=== PATIENT | male | born 1995 | race Caucasian/White ===

== ENCOUNTER 2023-09-14 18:12 | Emergency (ER) | payer OTHER, SELFPAY ==
[2023-09-14 18:30] VITALS: BP 131/85; PULSE 61; RESP 16; TEMP 36.7; O2SAT 99; BMI 30.1
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
== END 2023-09-14 19:30 | disposition home or self-care (01) ==
LOC: ED 19:19
PROVIDERS: Emergency Provider Student in an Organized Health Care Education/Training Program
DX: Z48.02 Encounter for removal of sutures (principal)
CPT/HCPCS: 99281; 99282

== ENCOUNTER 2024-09-12 18:07 | Outpatient (CLI) | payer MEDICAID, SELFPAY ==
--- OUTSIDE RECORDS SUMMARY | 2024-09-12 18:09 | XMS_ITS | Clinical Summary ---
Author Organization [facility] Address [place], [place] [address] Care Team Providers Care Pedicurist Name Role Phone None Primary Care Provider Unavailabl e Allergies Active Allergy Reactions Criticality Noted Date Comments Amoxicillin Hives Medium 12/11/2020 Medications Medication Sig Dispensed Refills Start Date End Date Status topiramate (TOPAMAX) 25 mg tabletIndications:Epi sodic mood disorder (HC) Take 1 tablet by mouth once daily. 30 tablet 3 01/20/2021 Active Encounters Date Type Department Care Team Description 06/18/2024 2:30 PM CDT Office Visit [facility] [id number] [place] [phone] Debora Alvarez SUPPORT REPRESENTATIVE [facility] Visit 06/18/2024 Travel from Last 3 Months Social History Tobacco Use Types Packs/Day Years Used Date Smoking Tobacco: Never Smokeless Tobacco: Never Tobacco Cessation:Counseling Given: Yes Alcohol Use Standard Drinks/Week Comments Yes 0 (1 standard drink = 0.6 oz pur e alcohol) occ PHQ-2 Answer Date Recorded PHQ-2 TOTAL SCORE 3 11/26/2020 Social Connections Answer Date Recorded Frequency of Communication with Friends and Fami ly Not on file 11/28/2021 Financial Resource Strain Answer Date R ecorded Difficulty of Paying Living Expenses Not on file 11/28/2021 Difficulty of Paying Living Expenses Not on file 11/28/2021 Sex and Gender Information Value Date Recorded Sex Assigned at Not on file Gender Identity Not on file Sexual Orientation Not on file Obstetrics History Last Filed Vital Signs Vital Sign Reading Time Taken Comments Blood Pressure 108/74 06/17/2021 4:00 PM CDT Pulse 68 06/17/2021 4:00 PM CDT Temperature 36.7 ??C (98.1 ??F) 01/19/2021 2:00 PM CS T Respiratory Rate - - Oxygen Saturation 97% 06/17/2021 4:00 PM CDT Inhaled Oxygen Concentration - - Weight 88.3 kg (194 lb 9.6 oz) 06/17/2021 4:00 P M CDT Height 174.8 cm (5' 8.82) 06/17/2021 4:00 PM CD T Body Mass Index 28.89 06/17/2021 4:00 PM CDT Plan of Treatment Health Maintenance Due Date Last Done Comments Tdap 2007 HIV for age 15-65 2011 Hepatitis C screening for ag e 18-79 2014 Tetanus booster 2016 Depression screening for age 12+ 11/26/2021 11/26/2020 BMI (ht and wt on same day) for age 18+ 06/17/2022 06/17/2021, 01/20/2021, 12/11/2020 COVID-19 vaccine series (2023- season) 2024 Influenza for age 9-49 07/29/2024 Pneumococcal series for age 6-64 Aged Out No longer eligible b ased on patient's age to complete this topic Care Teams Pedicurist Relationship Specialty Start Date End Date None . PCP - General 06/16/21
[2024-09-13 00:31] LABS: Chlamydia DNA Amplified* NOT DETECTED (No Detected); GC DNA Amplified* NOT DETECTED (No Detected)
== END 2024-09-12 18:08 | disposition home or self-care (01) ==
LOC: NFLDUCREF 18:08
PROVIDERS: Visit Provider Family Medicine
DX: R30.0 Dysuria (principal)
CPT/HCPCS: 87491; 87591

== ENCOUNTER 2024-09-13 22:32 | Emergency (ER) | payer MEDICAID, SELFPAY ==
[2024-09-13 22:39] VITALS: BP 140/90; PULSE 80; RESP 20; TEMP 36.6; O2SAT 99; BMI 30.1
--- NOTE | 2024-09-13 22:44 | CRLHL7_ITS ---
For Patients: As a result of the Century Cures Act, medical imaging exams and procedure reports are released immediately into your electronic medical record. You may view this report before your referring provider. If you have questions, please contact your health care provider. INDICATION: SUPRAPUBIC AND RT FLANK PAIN. TECHNIQUE: CT abdomen and pelvis acquired with 103 cc Isovue 370 IV contrast. COMPARISON: None. FINDINGS: Lower chest: Unremarkable. Liver: Unremarkable. Normal in size and attenuation. No suspicious masses. Gallbladder and bile ducts: Gallbladder is collapsed. No intra or extrahepatic biliary ductal dilatation. Pancreas: Unremarkable. No mass or inflammation. Spleen: Unremarkable. Normal in size. No masses. Adrenal glands: Unremarkable. No nodules. Kidneys: No hydronephrosis or hydroureter. Mild irregularity and enhancement at the proximal right ureter (2/57), with subtle enhancement in the bilateral proximal ureters. GI tract: Unremarkable. Normal in caliber. No sign of mass or inflammation. Normal appendix. Vasculature: Abdominal aorta is normal in caliber. Mesenteric arteries are patent. Lymph nodes: No lymphadenopathy. Peritoneum/Abdominal Wall: Unremarkable. No sign of mass or infiltration. No free air or significant free fluid. Pelvis: Circumferential bladder wall thickening. Prostate is unremarkable. Bones: Unremarkable for age. IMPRESSION: Subtle irregularity in the proximal right ureter with mild ureteral enhancement. In addition, there is circumferential bladder wall thickening. Findings are suspicious for ascending urinary infection. Correlate with UA and clinical and laboratory findings. Please note that all CT scans at this facility use dose modulation, iterative reconstruction, and/or weight-based dosing when appropriate to reduce radiation dose to as low as reasonably achievable. Dictated by Parth Mcqueen MD @ 09/14/2024 12:38:11 AM (Electronically Signed)
[2024-09-13] MEDS: ONDANSETRON 2 MG/ML inj 4 MG IVP (22:51)
[2024-09-13 22:56] LABS: Basophils Absolute Auto 0.02 K/uL (0.00-0.30); Basophils Percent Auto 0.2 % (0.0-3.0); Eosinophils Absolute Auto 0.08 K/uL (0.00-0.50); Hematocrit 42.6 % (37.0-53.0); Hemoglobin* 14.3 gm/dL (13.5-17.5); Immature Granulocytes Abs Auto 0.02 K/uL (0.00-0.30); Immature Granulocytes Pct Auto 0.2 %; Lymphocytes Absolute Auto 2.55 K/uL (0.90-2.90); Lymphocytes Percent Auto 31.8 % (20-44); Mean Corpuscular HGB Conc 34 gm/dL (32-36); Mean Corpuscular Hemoglobin 29 pg (26-34); Mean Corpuscular Volume 85 fL (80-100); Monocytes Percent Auto 7.6 % (0.0-11.0); Neutrophils Absolute Auto 4.74 K/uL (1.7-7.0); Neutrophils Percent Auto 59.2 % (42.0-72.0); Platelet Count* 216 K/uL (140-440); RDW Coefficient of Variation % 12.1 % (11.5-15.5); Red Blood Count 5.01 m/uL (4.30-5.90); White Blood Count* 8.02 K/uL (4.50-11.00)
[2024-09-13 23:00] LABS: Appearance Urine Clear (Clear); Bilirubin Urine Negative (Negative); Blood Urine Negative (Negative); Color Urine Yellow (Yellow); Glucose Urine Negative (Negative); Ketones Urine Negative (Negative); Leukocyte Esterase Urine Negative (Negative); Nitrite Urine Negative (Negative); Protein Urine Negative (Negative); RBC Urine 0-2 (0-2); Urobilinogen Urine 0.2 (0.2-1.0); WBC Urine 0-2 (0-5)
--- NOTE | 2024-09-13 23:04 | ED_ITS ---
HPI - General Adult General Date Seen: 09/13/24 <Paul Valentino DO - Last Filed: 09/15/24 07:59> Chief complaint: Flank Pain <Paul Valentino DO - Last Filed: 09/15/24 07:59> Stated complaint: kidney pain <Paul Valentino DO - Last Filed: 09/15/24 07:59> Time Seen by Provider: 09/13/24 22:37 <Paul Valenitno DO - Last Filed: 09/15/24 07:59> Source: patient <Paul Valentino DO - Last Filed: 09/15/24 07:59> Mode of arrival: ambulatory <Paul Valentino - Last Filed: 09/15/24 07:59> Limitations: no limitations <Paulpreeti Valentino - Last Filed: 09/15/24 07:59> History of Present Illness HPI narrative: Patient is a 29-year-old male presenting to emergency department for right flank pain and suprapubic pain. He states for the past few days he has been having suprapubic pain. He went to urgent care and him and his girlfriend tested for STDs and a UTI. Everything came back negative. The suprapubic pain persisted any continue to just not feel quite right. Over the past day started having right flank pain. Do this he has side to come the emergency department for re-evaluation. Has a occasional nausea but no vomiting. Currently feeling slightly nauseated. Has been taking Advil for pain which has been helping. Denies weakness, numbness, chest pain, shortness of breath, headache, vision changes, diarrhea, constipation. Denies symptoms like this before. Is not having any dysuria or penile discharge. Does not remember any recent heavy lifting where he could have hurt his back. <Paul Valentino DO - Last Filed: 09/15/24 07:59> Related Data Home medications: Home Medications ?Medication ?Instructions ?Recorded ?Confirmed No Known Home Medications 09/14/23 09/13/24 <Paul Valentino DO - Last Filed: 09/15/24 07:59> Allergies/adverse reactions: Allergies Allergy/AdvReac Type Severity Reaction Status Date / Time amoxicillin Allergy Mild Rash Verified 09/13/24 23:06 <Paul Valentino DO - Last Filed: 09/15/24 07:59> Review of Systems Status of ROS: Reports: 10 or more systems reviewed and unremarkable except as noted in History and below <Paul Valentino DO - Last Filed: 09/15/24 07:59> [facility] Medical History: Medical History No significant past medical history <Paul Valentino DO - Last Filed: 09/15/24 07:59> Surgical History: Surgical History Status post knee surgery ?Z98.890 - Other specified postprocedural states (ICD-10) <Paul Valentino DO - Last Filed: 09/15/24 07:59> Social History: Social History Smoking Status: Never smoker Second hand tobacco smoke exposure: No How often do you have a drink containing alcohol: never AUDIT-C Alcohol total score: 0 Non-prescribed substance use: denies use service: No <Paul Valentino DO - Last Filed: 09/15/24 07:59> Exam Narrative: Exam Narrative: Const: Well-nourished, Well-developed, in mild distress Eyes: PERRL, no conjunctival injection, and symmetrical lids HENT: Atraumatic external nose and ears. Moist mucous membranes. Neck: Symmetric, trachea midline, No thyromegaly. CVS: RRR, No murmurs or gallops. Peripheral pulses 2+ and equal in all extremities RESP: Unlabored respiratory effort. Clear to auscultation bilaterally. GI: Suprapubic tenderness, Nondistended, No rebound or guarding. No CVA tenderness MSK:Extremities w/o deformity, Normal Active ROM Skin: Warm, Dry. No rashes or lesions. Neuro: Normal Muscle tone, No focal neurological deficits. Psych: Awake, Alert, & Oriented x3. Appropriate mood and affect. <Paul Valentino DO - Last Filed: 09/15/24 07:59> Const: Vital Signs, click to edit/add: Vital Signs - 24 hr 09/13/24 22:39 Temperature 97.9 F Pulse Rate [Right Pulse Oximeter] 80 Respiratory Rate 20 Blood Pressure [Ri ght Upper Arm] 140/90 H Pulse Oximetry 99 Oxygen Delivery Me thod Room Air <Paul Valentino DO - Last Filed: 09/15/24 07:59> Vital Signs, click to edit/add: Vital Signs - 24 hr 09/13/24 22:39 Temperature 97.9 F Pulse Rate [Right Pulse Oximeter] 80 Respiratory Rate 20 Blood Pressure [Ri ght Upper Arm] 140/90 H Pulse Oximetry 99 Oxygen Delivery Me thod Room Air <Wolfgang Colorado MD - Last Filed: 09/14/24 00:44> Course Vital Signs Vital signs: Initial Vital Signs Temperature 97.9 F 09/13/24 22:39 Temperature Source Temporal Artery Scan 09/13/24 22:39 Pulse Rate 80 09/13/24 22:39 Respiratory Rate 20 09/13/24 22:39 Blood Pressure 140/90 H 09/13/24 22:39 Blood Pressure Mean 106 H 09/13/24 22:39 Blood Pressure Position Sitting 09/13/24 22:39 Pulse Oximetry 99 09/13/24 22:39 Oxygen Delivery Method Room Air 09/13/24 22:39 Vital Signs Temperature 97.9 F 09/13/24 22:39 Pulse Rate 80 09/13/24 22:39 Respiratory Rate 20 09/13/24 22:39 Blood Pressure 140/90 H 09/13/24 22:39 Pulse Oximetry 99 09/13/24 22:39 Oxygen Delivery Method Room Air 09/13/24 22:39 Temperature 97.9 F 09/14/24 00:55 Pulse Rate 74 09/14/24 00:55 Respiratory Rate 20 09/14/24 00:55 Blood Pressure 132/74 09/14/24 00:55 Pulse Oximetry 99 09/14/24 00:55 Oxygen Delivery Method Room Air 09/14/24 00:55 <Paul Valentino DO - Last Filed: 09/15/24 07:59> Initial Vital Signs Temperature 97.9 F 09/13/24 22:39 Temperature Source Temporal Artery Scan 09/13/24 22:39 Pulse Rate 80 09/13/24 22:39 Respiratory Rate 20 09/13/24 22:39 Blood Pressure 140/90 H 09/13/24 22:39 Blood Pressure Mean 106 H 09/13/24 22:39 Blood Pressure Position Sitting 09/13/24 22:39 Pulse Oximetry 99 09/13/24 22:39 Oxygen Delivery Method Room Air 09/13/24 22:39 Vital Signs Temperature 97.9 F 09/13/24 22:39 Pulse Rate 80 09/13/24 22:39 Respiratory Rate 20 09/13/24 22:39 Blood Pressure 140/90 H 09/13/24 22:39 Pulse Oximetry 99 09/13/24 22:39 Oxygen Delivery Method Room Air 09/13/24 22:39 Temperature 97.9 F 09/14/24 00:55 Pulse Rate 74 09/14/24 00:55 Respiratory Rate 20 09/14/24 00:55 Blood Pressure 132/74 09/14/24 00:55 Pulse Oximetry 99 09/14/24 00:55 Oxygen Delivery Method Room Air 09/14/24 00:55 <Wolfgang Colorado MD - Last Filed: 09/14/24 00:44> Medications Administered Medications: Discontinued Medications Generic Name Dose Route Start Last Admin Trade Name Freq PRN Reason Stop Dose Admin Ondansetron HCl 4 mg 09/13/24 22:44 09/13/24 22:51 Ondansetron 2 Mg/Ml Inj IVP 09/13/24 22:45 4 mg ONCE ONE Administration <Paul Valentino DO - Last Filed: 09/15/24 07:59> Discontinued Medications Generic Name Dose Route Start Last Admin Trade Name Freq PRN Reason Stop Dose Admin Ondansetron HCl 4 mg 09/13/24 22:44 09/13/24 22:51 Ondansetron 2 Mg/Ml Inj IVP 09/13/24 22:45 4 mg ONCE ONE Administration <Wolfgang Colorado MD - Last Filed: 09/14/24 00:44> Medical Decision Making MDM Narrative Medical decision making narrative: Patient is a 29-year-old male presenting for right flank and suprapubic tenderness. Differential at this time includes UTI possible pyelonephritis, nephrolithiasis, back strain. Considering age aortic aneurysm seems very unlikely. Will give him some Zofran for nausea. Will also order a repeat urinalysis along with a COVID/flu/RSV, CBC, CMP along with CT scan with IV contrast. Lab work returned showing no concerning abnormalities. No clear signs of UTI at this time. CT scans pending at the end of my shift. <Paul Valentino DO - Last Filed: 09/15/24 07:59> Patient is a 29-year-old male presenting for right flank and suprapubic tenderness. Differential at this time includes UTI possible pyelonephritis, nephrolithiasis, back strain. Considering age aortic aneurysm seems very unlikely. Will give him some Zofran for nausea. Will also order a repeat urinalysis along with a COVID/flu/RSV, CBC, CMP along with CT scan with IV contrast. Lab work returned showing no concerning abnormalities. No clear signs of UTI at this time. CT scans pending at the end of my shift. CT results showed possible ureteral enhancement but no signs of infection on UA. Patient is at this time was advised drink plenty of fluids get plenty of rest rotate Tylenol Motrin follow-up with his primary physician. Rest of workup is unremarkable. <Wolfgang Colorado MD - Last Filed: 09/14/24 00:44> Lab Data Labs: Lab Results 09/13/24 09/13/24 09/13/24 Range/Units 22:44 22:48 22:52 WBC 8.02 (4.50-11.00) K/uL RBC 5.01 (4.30-5.90) m/uL Hgb 14.3 (13.5-17.5) gm/dL Hct 42.6 (37.0-53.0) % MCV 85 (80-100) fL MCH 29 (26-34) pg MCHC 34 (32-36) gm/dL RDW Coeff of Nivia 12.1 (11.5-15.5) % Plt Count 216 (140-440) K/uL Neut % (Auto) 59.2 (42.0-72.0) % Lymph % (Auto) 31.8 (20-44) % [place] % (Auto) 7.6 (0.0-11.0) % Eos % (Auto) 1.0 (0.0-7.0) % Baso % (Auto) 0.2 (0.0-3.0) % Neut # (Auto) 4.74 (1.7-7.0) K/uL Lymph # (Auto) 2.55 (0.90-2.90) K/uL [place] # (Auto) 0.60 (0.00-0.90) K/UL Eos # (Auto) 0.08 (0.00-0.50) K/uL Baso # (Auto) 0.02 (0.00-0.30) K/uL Abs Immat Gran (auto) 0.02 (0.00-0.30) K/uL Imm/Tot Granulo (auto) 0.2 % Sodium 135 (135-149) mmol/L Potassium 4.1 (3.6-5.1) mmol/L Chloride 99 (96-114) mmol/L Carbon Dioxide 27 (20-32) mmol/L Anion Gap 9 (7-15) mEq/L BUN 19 (5-24) mg/dL Creatinine 0.9 (0.5-1.5) mg/dL Estimated Creat Clear 126.17 Estimated GFR 119 ml/min Glucose 120 H (60-115) mg/dL Calcium 9.3 (8.4-10.6) mg/dL Total Bilirubin 0.3 (0.1-1.5) mg/dL AST 36 H (12-35) U/L ALT 59 H (4-50) U/L Alkaline Phosphatase 71 (40-150) U/L Total Protein 7.7 (6.0-8.3) g/dL Albumin 4.8 (3.3-5.0) g/dL Urine Color Yellow (Yellow) Urine Appearance Clear (Clear) Urine pH 7.0 (5.0-8.5) Ur Specific Dunnegan 1.020 (1.000-1.030) Urine Protein Negative (Negative) Urine Glucose (UA) Negative (Negative) Urine Ketones Negative (Negative) Urine Blood Negative (Negative) Urine Nitrite Negative (Negative) Urine Bilirubin Negative (Negative) Urine Urobilinogen 0.2 (0.2-1.0) Ur Leukocyte Esterase Negative (Negative) Urine RBC 0-2 (0-2) Urine WBC 0-2 (0-5) Ur Squamous Epith Cells None (None-Few) Urine Bacteria None (None) SARS-CoV-2 (PCR) Negative SARS-CoV-2 (Negative) Influenza Type A (PCR) Negative PCR FLU A (Negative) Influenza Type B (PCR) Negative PCR FLU B (Negative) RSV (PCR) Negative PCR RSV (Negative) <Paul Valentino, DO - Last Filed: 09/15/24 07:59> Lab Results 09/13/24 09/13/24 09/13/24 Range/Units 22:44 22:48 22:52 WBC 8.02 (4.50-11.00) K/uL RBC 5.01 (4.30-5.90) m/uL Hgb 14.3 (13.5-17.5) gm/dL Hct 42.6 (37.0-53.0) % MCV 85 (80-100) fL MCH 29 (26-34) pg MCHC 34 (32-36) gm/dL RDW Coeff of Nivia 12.1 (11.5-15.5) % Plt Count 216 (140-440) K/uL Neut % (Auto) 59.2 (42.0-72.0) % Lymph % (Auto) 31.8 (20-44) % [place]qu[place] % (Auto) 7.6 (0.0-11.0) % Eos % (Auto) 1.0 (0.0-7.0) % Baso % (Auto) 0.2 (0.0-3.0) % Neut # (Auto) 4.74 (1.7-7.0) K/uL Lymph # (Auto) 2.55 (0.90-2.90) K/uL [place] # (Auto) 0.60 (0.00-0.90) K/UL Eos # (Auto) 0.08 (0.00-0.50) K/uL Baso # (Auto) 0.02 (0.00-0.30) K/uL Abs Immat Gran (auto) 0.02 (0.00-0.30) K/uL Imm/Tot Granulo (auto) 0.2 % Sodium 135 (135-149) mmol/L Potassium 4.1 (3.6-5.1) mmol/L Chloride 99 (96-114) mmol/L Carbon Dioxide 27 (20-32) mmol/L Anion Gap 9 (7-15) mEq/L BUN 19 (5-24) mg/dL Creatinine 0.9 (0.5-1.5) mg/dL Estimated Creat Clear 126.17 Estimated GFR 119 ml/min Glucose 120 H (60-115) mg/dL Calcium 9.3 (8.4-10.6) mg/dL Total Bilirubin 0.3 (0.1-1.5) mg/dL AST 36 H (12-35) U/L ALT 59 H (4-50) U/L Alkaline Phosphatase 71 (40-150) U/L Total Protein 7.7 (6.0-8.3) g/dL Albumin 4.8 (3.3-5.0) g/dL Urine Color Yellow (Yellow) Urine Appearance Clear (Clear) Urine pH 7.0 (5.0-8.5) Ur Specific Dunne[place] 1.020 (1.000-1.030) Urine Protein Negative (Negative) Urine Glucose (UA) Negative (Negative) Urine Ketones Negative (Negative) Urine Blood Negative (Negative) Urine Nitrite Negative (Negative) Urine Bilirubin Negative (Negative) Urine Urobilinogen 0.2 (0.2-1.0) Ur Leukocyte Esterase Negative (Negative) Urine RBC 0-2 (0-2) Urine WBC 0-2 (0-5) Ur Squamous Epith Cells None (None-Few) Urine Bacteria None (None) SARS-CoV-2 (PCR) Negative SARS-CoV-2 (Negative) Influenza Type A (PCR) Negative PCR FLU A (Negative) Influenza Type B (PCR) Negative PCR FLU B (Negative) RSV (PCR) Negative PCR RSV (Negative) <Wolfgang Colorado MD - Last Filed: 09/14/24 00:44> Discharge Plan Discharge Clinical Impression: Acute flank pain <Paul Valentino DO - Last Filed: 09/15/24 07:59> Patient Disposition: Home, Self-Care <Paul Valentino DO - Last Filed: 09/15/24 07:59> Condition: Stable <Paul Valentino DO - Last Filed: 09/15/24 07:59> Instructions: Flank Pain (ED) <Paul Valentino DO - Last Filed: 09/15/24 07:59> Additional Instructions: I not sure exactly was causing him pain at this time but lab work and imaging and showing no signs of kidney stones, UTI, kidney infection. Follow-up with the primary care provider. Return to emergency department for new or worsening symptoms. <Paul Valentino DO - Last Filed: 09/15/24 07:59> Activity Level: No Restrictions <Paul Valentino DO - Last Filed: 09/15/24 07:59> No Restrictions <Wolfgang Colorado MD - Last Filed: 09/14/24 00:44> Discharge Diet: Regular <Paul Valentino DO - Last Filed: 09/15/24 07:59> Regular <Wolfgang Colorado MD - Last Filed: 09/14/24 00:44> Prescriptions: No Action No Known Home Medications <Paul Valentino DO - Last Filed: 09/15/24 07:59> Follow Up/Referrals: Provider,Not a Local [Primary Care Provider] - <Paul Valentino DO - Last Filed: 09/15/24 07:59> Stand Alone Forms: [employer] Info Instructions <Paul Valentino DO - Last Filed: 09/15/24 07:59>
[2024-09-13 23:12] LABS: Albumin* 4.8 g/dL (3.3-5.0); Chloride* 99 mmol/L (96-114); Slide Review Reflex No
[2024-09-13 23:13] LABS: Potassium* 4.1 mmol/L (3.6-5.1); Sodium* 135 mmol/L (135-149)
[2024-09-13 23:15] LABS: Anion Gap 9 mEq/L (7-15); Aspartate Amino Transferase* 36 U/L (12-35); Bilirubin Total* 0.3 mg/dL (0.1-1.5); Carbon Dioxide* 27 mmol/L (20-32); Creatinine* 0.9 mg/dL (0.5-1.5); Est. Creatinine Clearance* 126.17; Estimated Glomerular Filt Rate 119 ml/min
[2024-09-13 23:16] LABS: Alanine Aminotransferase* 59 U/L (4-50); Alkaline Phosphatase* 71 U/L (40-150); Blood Urea Nitrogen* 19 mg/dL (5-24); Calcium* 9.3 mg/dL (8.4-10.6); Glucose* 120 mg/dL (60-115); Total Protein* 7.7 g/dL (6.0-8.3)
[2024-09-13 23:28] LABS: PCR FLU A Negative PCR FLU A (Negative); PCR FLU B Negative PCR FLU B (Negative); PCR RSV Negative PCR RSV (Negative); SARS PCR* Negative SARS-CoV-2 (Negative)
--- OUTSIDE RECORDS SUMMARY | 2024-09-13 23:32 | XMS_ITS | Clinical Summary ---
Author Organization [facility] Address [place], [place] [address] Care Team Providers Care Textile Finisher Name Role Phone None Primary Care Provider [...] Description 06/18/2024 2:30 PM CDT Office Visit [facility] [id number] [place] [phone] Debora Alvarez LINSEED OIL REFINER [facility] Visit 06/18/2024 Travel from [...] age to complete this topic Care Teams Textile Finisher Relationship Specialty Start Date End Date None . PCP - General 06/16/21
[2024-09-14 00:55] VITALS: BP 132/74; PULSE 74; RESP 20; TEMP 36.6; O2SAT 99
== END 2024-09-14 00:56 | disposition home or self-care (01) ==
PROVIDERS: Emergency Provider Student in an Organized Health Care Education/Training Program
DX: R10.9 Unspecified abdominal pain (principal)
CPT/HCPCS: 36415; 74177; 80053; 81001; 85025; 87631; 96374; 99283; 99284; 99285; J2405; Q9967

== ENCOUNTER 2025-04-12 13:05 | Emergency (ER) | payer MEDICAID, SELFPAY ==
[2025-04-12 13:14] VITALS: BP 118/81; PULSE 74; RESP 16; TEMP 36.3; O2SAT 98; BMI 30.8
--- NOTE | 2025-04-12 13:28 | ED_ITS ---
HPI - General Adult General Chief complaint: Ear/Nose/Throat Problem Stated complaint: Left ear feels clogged Time Seen by Provider: 04/12/25 13:15 History of Present Illness HPI narrative: Arrives with 4 days of left ear feeling pugged. Also reports recent cough and congestion that is now relieved. Denies pain, alert and oriented, ABCs intact. 29-year-old young man presenting to the emergency department with concern of a feeling of plugged left ear. Has been present maybe a week. Does endorse being sick with what sounds like a head cold and cough recently but that has improved. Is not having significant pain. No noted environmental allergies. Fever. Tried clearing out with hydrogen peroxide today but still feels the same. Does not smoke but does vape Related Data Previous Rx's ?Medication ?Instructions ?Recorded cefdinir 300 mg capsule 300 mg PO BID 8 days #16 caps 04/12/25 prednisone 20 mg tablet 40 mg (2 x 20 mg) PO DAILY 5 days 04/12/25 #10 tabs Allergies Allergy/AdvReac Type Severity Reaction Status Date / Time amoxicillin Allergy Mild Rash Verified 04/12/25 13:13 Review of Systems Status of ROS: Reports: 6 or more systems reviewed and unremarkable except as noted in History and below [facility] Medical History No significant past medical history Surgical History Status post knee surgery ?Z98.890 - Other specified postprocedural states (ICD-10) Social History Smoking Status: Never smoker Second hand tobacco smoke exposure: No How often do you have a drink containing alcohol: never AUDIT-C Alcohol total score: 0 Non-prescribed substance use: denies use service: No Exam Narrative: Exam Narrative: Pleasant. NAD. Sounds a little congested. No facial swelling erythema or tenderness. Breathing easily. Distended dulled faintly erythematous left TM. Right TM exam with some dried cerumen in the canal but easily visible and unremarkable TM. Const: Vital Signs, click to edit/add: Vital Signs - 24 hr 04/12/25 13:14 Temperature 97.3 F L Pulse Rate [Pulse Oximeter] 74 Respiratory Rate 16 Blood Pressure [Ri ght Upper Arm] 118/81 Pulse Oximetry 98 Oxygen Delivery Me thod Room Air Documenting provider has reviewed patient's vital signs: yes Course Vital Signs Vital signs: Initial Vital Signs Temperature 97.3 F L 04/12/25 13:14 Temperature Source Temporal Artery Scan 04/12/25 13:14 Pulse Rate 74 04/12/25 13:14 Respiratory Rate 16 04/12/25 13:14 Blood Pressure 118/81 04/12/25 13:14 Blood Pressure Mean 93 04/12/25 13:14 Pulse Oximetry 98 04/12/25 13:14 Oxygen Delivery Method Room Air 04/12/25 13:14 Vital Signs Temperature 97.3 F L 04/12/25 13:14 Pulse Rate 74 04/12/25 13:14 Respiratory Rate 16 04/12/25 13:14 Blood Pressure 118/81 04/12/25 13:14 Pulse Oximetry 98 04/12/25 13:14 Oxygen Delivery Method Room Air 04/12/25 13:14 Temperature 97.3 F L 04/12/25 13:14 Pulse Rate 74 04/12/25 13:14 Respiratory Rate 16 04/12/25 13:14 Blood Pressure 118/81 04/12/25 13:14 Pulse Oximetry 98 04/12/25 13:14 Oxygen Delivery Method Room Air 04/12/25 13:14 Medical Decision Making MDM Narrative Medical decision making narrative: Does not sound as though allergies is a typical problem here. Does appear to have some eustachian tube dysfunction. Whether not this rises to the level of a bacterial infection I am a little unsure at this point. Would like to try decongestion. Does not appear to be suffering from sinus disease otherwise. Duration of symptoms now coming up on a week would be soon about time for antibiotics. Does not appear that there is any occluding cerumen to explain his symptoms. No neurological deficits otherwise. See patient discharge plan for further discussion Stay well-hydrated. Consider sleeping under the mist of a cool mist humidifier. Menthol vapors might be helpful. Get some 12 hours pseudoephedrine for decongestion - can take it about every 10 hours. Also sending in a prescription for some prednisone. This can decrease inflammation and therefore swelling and help with drainage. Can take up to 800 mg of ibuprofen or up to 1000 mg of acetaminophen per dose. If not improved in a couple of days or have increasing pain, I sent in a prescription of an antibiotic cefdinir for you as well that you could fill at that point (incidentally, I would have prescribed amoxicillin but rash is listed as an allergy. Always good to verify that this is a real allergy) [email or web address] Medical Records Medical records reviewed: Yes I reviewed the patient's medical records Discharge Plan Discharge Clinical Impression: Acute dysfunction of left eustachian tube Patient Disposition: Home, Self-Care Condition: Stable Additional Instructions: Stay well-hydrated. Consider sleeping under the mist of a cool mist humidifier. Menthol vapors might be helpful. Get some 12 hours pseudoephedrine for decongestion - can take it about every 10 hours. Also sending in a prescription for some prednisone. This can decrease inflammation and therefore swelling and help with drainage. Can take up to 800 mg of ibuprofen or up to 1000 mg of acetaminophen per dose. If not improved in a couple of days or have increasing pain, I sent in a prescription of an antibiotic cefdinir for you as well that you could fill at that point (incidentally, I would have prescribed amoxicillin but rash is listed as an allergy. Always good to verify that this is a real allergy) [email or web address] Prescriptions: New prednisone 20 mg tablet 40 mg PO DAILY 5 Days Qty: 10 0RF cefdinir 300 mg capsule 300 mg PO BID 8 Days Qty: 16 0RF Follow Up/Referrals: Provider,Not a Local [Primary Care Provider] - Stand Alone Forms: [employer] Info Instructions
== END 2025-04-12 14:21 | disposition home or self-care (01) ==
LOC: ED 14:02
PROVIDERS: Emergency Provider Family Medicine
DX: H69.82 Other specified disorders of Eustachian tube, left ear (principal)
CPT/HCPCS: 99282; 99283